=== PATIENT | female | born 1950 | race Caucasian/White ===

== ENCOUNTER 2017-10-22 04:53 | Inpatient (IN) | payer OTHER ==
[2017-10-01 11:46] VITALS: BMI 33.0
--- NOTE | 2017-10-01 12:18 | PAT Medication Instructions ---
Service Date Oct 01, 2017. Current Home Medication List Celecoxib (CeleBREX), 200 MG PO QAM Cetirizine (Zyrtec), 10 MG PO HS Diltiazem Hcl Ext Rel (Tiazac), 120 MG PO BID Fluticasone Propionate (Nasal) (Flonase Allergy Relief), 2 SPRAYS INTNAS PRN Hydrochlorothiazide (Hydrochlorothiazide), 1 TAB PO QAM Levothyroxine Sodium (Levothyroxine Sodium), 1 TAB PO QAM Potassium Ext Rel (Klor-Con), 20 MEQ PO QPM Probiotic Product (Align), 1 TAB PO QAM PRN for PRN Medication Instructions For Your Scheduled Surgery - Check with surgeon for instructions: Celecoxib (CeleBREX), 200 MG PO QAM - Hold the following medications the morning of surgery: Hydrochlorothiazide (Hydrochlorothiazide), 1 TAB PO QAM Probiotic Product (Align), 1 TAB PO QAM PRN for PRN - Take the following medications the morning of surgery with a sip of water: Levothyroxine Sodium (Levothyroxine Sodium), 1 TAB PO QAM Fluticasone Propionate (Nasal) (Flonase Allergy Relief), 2 SPRAYS INTNAS PRN ( if needed) Diltiazem Hcl Ext Rel (Tiazac), 120 MG PO BID - Take the following medications as scheduled the night before surgery: Probiotic Product (Align), 1 TAB PO QAM PRN for PRN Potassium Ext Rel (Klor-Con), 20 MEQ PO QPM Fluticasone Propionate (Nasal) (Flonase Allergy Relief), 2 SPRAYS INTNAS PRN ( if needed) Cetirizine (Zyrtec), 10 MG PO HS If you have any questions please call us at [phone] or [phone] or [phone]
--- NOTE | 2017-10-01 12:49 | DIAGNOSTIC IMAGING REPORT ---
CHEST 2 VIEWS ROUTINE CLINICAL HISTORY: PAT preoperative evaluation COMPARISON STUDY: 12/30/2013 FINDINGS: Mild emphysematous change. Diaphragms smooth. Minimal chronic atelectasis left base. Lungs otherwise appear clear. IMPRESSION: Mild emphysematous change. No acute process. The above report was generated using voice recognition software. It may contain grammatical, syntax or spelling errors. Electronically signed by: Caleb Henao M.D. 10/01/2017 12:47 PM Dictated Date/Time: 10/01/2017 12:47 PM
[2017-10-01 13:02] LABS: BASO % 0.2 %; BASO ABS # 0.02 K/uL (0-0.2); EOS % 2.2 %; EOS ABS # 0.18 K/uL (0-0.5); HEMATOCRIT 43.1 % (37-47); HEMOGLOBIN 14.9 g/dL (12.0-16.0); IG# 0.01 K/uL (0.00-0.02); LYMPH % 37.3 %; LYMPH ABS # 3.01 K/uL (1.2-3.4); MEAN CELL VOLUME 88.9 fL (80-100); MEAN CORPUSCULAR HEMOGLOBIN 30.7 pg (25-34); MEAN CORPUSCULAR HGB CONC 34.6 g/dl (32-36); MEAN PLATELET VOLUME 10.1 fL (7.4-10.4); MONO % 9.2 %; MONO ABS # 0.74 K/uL (0.11-0.59); PLATELET COUNT 312 K/uL (130-400); RED CELL DISTRIBUTION WIDTH CV 13.2 % (11.5-14.5); RED CELL DISTRIBUTION WIDTH SD 42.7 fL (36.4-46.3); WHITE BLOOD COUNT 8.06 K/uL (4.8-10.8)
[2017-10-01 13:20] LABS: INR 0.9 (0.9-1.1); PTT PATIENT 24.4 SECONDS (21.0-31.0)
[2017-10-01 14:35] LABS: ALBUMIN 3.8 gm/dl (3.4-5.0); CALCIUM 9.1 mg/dl (8.5-10.1); CREATININE 0.8 mg/dl (0.60-1.20); POTASSIUM 4.1 mmol/L (3.5-5.1); TOTAL PROTEIN 7.5 gm/dl (6.4-8.2)
--- NOTE | 2017-10-21 10:48 | History and Physical ---
History & Physical Date Oct 21, 2017. Chief Complaint right knee pain History of Present Illness The patient is a 67 year old female with complaints of right knee pain for years. Pt has failed all forms of conservative measures and ready for TkA. Additional History Hepatic Disease: No Endocrine Disorder: No Kidney Disease: No Hypertension: Yes Heart Disease: No Bleeding Tendencies: No Infectious Diseases: No Allergies Coded Allergies: No Known Allergies (Unverified , 10/01/17) PER CRIST[facility] CORRALES H&P 12/2013 Home Medications Scheduled Celecoxib (CeleBREX), 200 MG PO QAM Cetirizine (Zyrtec), 10 MG PO HS Diltiazem Hcl Ext Rel (Tiazac), 120 MG PO BID Fluticasone Propionate (Nasal) (Flonase Allergy Relief), 2 SPRAYS INTNAS PRN Hydrochlorothiazide (Hydrochlorothiazide), 1 TAB PO QAM Levothyroxine Sodium (Levothyroxine Sodium), 1 TAB PO QAM Potassium Ext Rel (Klor-Con), 20 MEQ PO QPM Scheduled PRN Probiotic Product (Align), 1 TAB PO QAM PRN for PRN Physical Examination Skin: warm/dry, no rash Eyes: normal inspection, EOMI, sclerae normal ENT: normal ENT inspection, pharynx normal Head: normocephalic, atraumatic Neck: supple, no adenopathy, trachea midline Respiratory/Chest: lungs clear, normal breath sounds, no respiratory distress Cardiovascular: regular rate, rhythm, no edema, no murmur Abdomen / GI: normal bowel sounds, non tender Back: normal inspection Extremities: normal inspection, normal range of motion, + pertinent finding ( PAIN WITH ROM RIGH KNEE AND JOINT LINE TENDERNESS. ) Neurologic/Psych: no motor/sensory deficits, alert, normal reflexes, oriented x 3 Diagnosis DJD RIGHT KNEE Plan of Treatment PT TO BE ADMITTED AND UNDERGO RIGHT TKA.
[~2017-10-22] VITALS: Ht 160 cm; Wt 84.5 kg
[2017-10-22] VITALS (10 sets, daily range): BP systolic 96–145; BP diastolic 64–91; PULSE 69–98; TEMP 36.3–36.9; O2SAT 92–98; Ht 160 cm; Wt 84.5 kg
[~2017-10-22 04:53] MED LIST: CETI10TA84 PO; CLB/200 PO; DILT120C68 PO; FLUT0.15 INTNAS; HYDR25TA5 PO; LEVO50TA6 PO; MISC4CAP PO; POTA20TA16 PO
[2017-10-22] MEDS ORDERED: CeleBREX 200 MG CAP PO SCH (06:00)
[2017-10-22] MEDS ORDERED: DEXAMETHASONE 4 MG TAB PO SCH (06:00)
[2017-10-22] MEDS ORDERED: LACTATED RINGER'S 1000ML IV SCH (06:00)
[2017-10-22] MEDS ORDERED: LACTATED RINGER'S 1000ML 1,000 ML IV SCH (06:00)
[2017-10-22] MEDS ORDERED: ROPIVACAINE 5MG/ML 30 ML 150 MG, BUPIVACAINE 0.5% MPF INJ 30 ML, EpINEphrine HCL INJ 0.... INFIL SCH ×8 (06:00)
[2017-10-22] MEDS ORDERED: ACETAMINOPHEN 500 MG TAB PO SCH (06:00)
[2017-10-22] MEDS ORDERED: LACTATED RINGER'S 1000ML 500 ML IV SCH (06:00)
[2017-10-22] MEDS ORDERED: CEFAZOLIN 2000MG IV PUSH 15 ML IV SCH (06:00)
[2017-10-22] MEDS ORDERED: FAMOTIDINE 20 MG TAB PO SCH (06:00)
[2017-10-22] MEDS ORDERED: METOCLOPRAMIDE HCL 10 MG TAB PO SCH (06:00)
[2017-10-22] MEDS: TRANEXAMIC ACID INJ 1,000 MG x 2 Bags IV SCH ×4 (06:30→06:45)
[2017-10-22] MEDS ORDERED: ORTHO JOINT ANESTHETIC ONE (06:36)
[2017-10-22] MEDS ORDERED: BACITRACIN 50000 UNIT VIAL ONE (06:36)
[2017-10-22] MEDS ORDERED: BUPIVACAINE 0.5 % 5 MG/1 ML PF 10ML VIAL ONE (06:36)
[2017-10-22] MEDS ORDERED: POVIDONE-IODINE OP SOLN 30 ML BTL ONE (06:36)
[2017-10-22] MEDS ORDERED: BUPIVACAINE 0.25% 30 ML VIAL ONE (06:36)
[2017-10-22] MEDS ORDERED: MIDAZOLAM HCL 1 MG/ML 2ML VIAL ONE (06:37)
--- NOTE | 2017-10-22 06:44 | History & Physical Bridge Note ---
H&P Re-Evaluation Bridge Note: I have examined the patient, reviewed the History & Physical and in the interval since the performance of the History & Physical I have noted the following changes of clinical significance: No changes noted
[2017-10-22] MEDS ORDERED: PROPOFOL IV EMULSION 10 MG/ML 20 ML VIAL IV ONE (07:56)
[2017-10-22] MEDS ORDERED: LIDOCAINE HCL 2% 2 ML VIAL (20MG/ML) ONE (07:56)
[2017-10-22] MEDS ORDERED: PHENYLEPHRINE 100MCG/ML 5ML SYR ONE (07:56)
--- NOTE | 2017-10-22 08:00 | [facility] Post Operative Brief Note ---
Immediate Operative Summary Operative Date Oct 22, 2017. Pre-Operative Diagnosis Degenerative joint disease right knee. Post-Operative Diagnosis same as preoperative diagnosis Procedure(s) Performed Right total knee arthroplasty. Surgeon Dr. Nielson Terrazzo Layer Surgeon(s) Leonor Fung PA-C Estimated Blood Loss 20cc Findings Consistent with Post-Op Diagnosis Specimens A. Right knee bone and tissue. Drains None Anesthesia Type MAC Spinal Regional Complication(s) none Disposition Accompanied Pt To Recover: no Disposition: Recovery Room / PACU
--- NOTE | 2017-10-22 08:09 | [facility] Operative Report ---
Operative Report Operative Date Oct 22, 2017. Pre-Operative Diagnosis Degenerative joint disease right knee. Post-Operative Diagnosis same as preoperative diagnosis Procedure(s) Performed Right total knee arthroplasty. Surgeon Dr. Nielson Supervisor [employer] Workers Surgeon(s) Leonor Fung PA-C Estimated Blood Loss 20ML Findings as above Specimens A. Right knee bone and tissue. Drains None Anesthesia Type MAC Spinal Regional Complication(s) none Disposition no Recovery Room / PACU Description of Procedure IMPLANTS USED: Emiliano [employer] journeyed to knee size 3 cemented femoral component, a size 2 tibial component, a size 12 PS insert with size 35 all polythene patella INDICATIONS: Mrs. Cummings is a pleasant female) who has unfortunately failed all forms of conservative measures. Therefore, they have decided to undergo elective surgical intervention. All risks and benefits of the surgery were discussed with the patient and the family in entirety. PROCEDURE: The patient was brought to the operating room and properly identified by myself, anesthesia, and staff. Patient was given a spinal anesthesia and placed on the operating table in the supine position. Tourniquets were applied to the right upper thigh. The leg was then prepped and draped in usual sterile fashion. We made a standard midline approach over the patella and dissected down through the subcutaneous tissue to identify the capsule and performed a medial capsulotomy with the patella everted and the knee flexed.The patient matched implant was then put onto the femur. The femur measured to be a size 3. This was then put into place. We made the appropriate cuts and then placed a retractor behind the proximal tibia to retract anteriorly. We then placed the patient matched knee implant on the tibia. It measured to be a size 3. A size 3 guide was then put in place. We used the tibial punch then put the trial components into place. We had very good range of motion, excellent stability, and excellent patella tracking. We removed the trial components and irrigated the wound. We impacted the components in place using antibiotic cement. All excess cement was removed. We then irrigated the wound once more. We closed the capsule with 0 PDS suture , deep dermis and 2-0 Vicryl, and finally the skin with sisi. A sterile dressing was applied. The patient was taken to the recovery room in stable condition. Due to the complex nature of the procedure, the entire surgery was performed with the operational assistance of [the (PA-C)]. The press assistant and feeder was under direct supervision, was involved in the actual performance of all aspects of the surgical procedure including hemostasis, tissue retraction and incision, instrument management, patient positioning, and wound closure. I attest to the content of the Intraoperative Record and any orders documented therein. Any exceptions are noted below.
[2017-10-22] MEDS ORDERED: ALUMINUM/MAGNESIUM/SIMETH (MAALOX MAX) 30 ML UDC PO PRN (08:15)
[2017-10-22] MEDS ORDERED: MAGNESIUM HYDROXIDE SUSP 30 ML UDC PO PRN (08:15)
[2017-10-22] MEDS ORDERED: ONDANSETRON INJ 2 MG/ML 2 ML VIAL IV PRN (08:15)
[2017-10-22] MEDS ORDERED: ZOLPIDEM TARTRATE 5 MG TAB PO PRN (08:15)
--- NOTE | 2017-10-22 09:05 | Anesthesiology Progress Note ---
Anesthesia Post Op Note Date & Time Oct 22, 2017 at 09:05 Vital Signs Pain Intensity: 0 Vital Signs Past 12 Hours Date Time Temp Pulse Resp B/P (MAP) Pulse Ox O2 Delivery O2 Flow Rate FiO2 10/22/17 09:00 36.2 72 14 106/62 98 Nasal Cannula 3 10/22/17 08:50 70 14 109/61 98 Nasal Cannula 3 10/22/17 08:40 73 14 96/59 99 Oxymask 3 10/22/17 08:33 36.2 76 16 99/60 97 Oxymask 5 10/22/17 05:32 36.8 85 18 145/91 96 Room Air Notes Neuraxial Anesthesia: was administered, sensory block is resolving
[2017-10-22] MEDS ORDERED: ATROPINE SULFATE 0.1 MG/ML 5ML SYR IV PRN (09:15)
[2017-10-22] MEDS ORDERED: EpHEDrine SULFATE INJ 50 MG/ML AMP IV PRN (09:15)
[2017-10-22] MEDS: SODIUM CHLORIDE 0.9% 1000ML 1,000 ML IV SCH ×2 (11:44→21:08)
[2017-10-22] MEDS: HYDROCHLOROTHIAZIDE 25 MG TAB PO SCH (11:45)
[2017-10-22] MEDS: DOCUSATE SODIUM 100 MG CAP PO SCH ×2 (11:45→21:07)
[2017-10-22] MEDS ORDERED: TRANEXAMIC ACID INJ 1,000 MG in SODIUM CHLORIDE 0.9% 100ML 100 ML IV SCH (14:30)
[2017-10-22] MEDS: ACETAMINOPHEN 500 MG TAB PO SCH ×2 (14:59→22:24)
[2017-10-22] MEDS: CEFAZOLIN IV 2,000 MG in SYRINGE 0 ML IV SCH ×2 (15:00→22:29)
[2017-10-22] MEDS ORDERED: CETIRIZINE HCL 10 MG TAB PO SCH (21:00)
[2017-10-22] MEDS ORDERED: POTASSIUM CHLORIDE 20 MEQ TABCR PO SCH (21:00)
[2017-10-22] MEDS: ASPIRIN 81 MG ECTAB PO SCH (21:07)
[2017-10-22] MEDS: DILTIAZEM HCL 120 MG EXT REL CAP PO SCH (21:08)
[2017-10-22] MEDS: OXYCODONE HCL IR 5 MG TAB (IMMEDIATE RELEASE) PO PRN (22:25)
[2017-10-23 03:22] VITALS: BP 102/65; PULSE 89; TEMP 36.4; O2SAT 95
[2017-10-23] MEDS: SODIUM CHLORIDE 0.9% 1000ML 1,000 ML IV SCH (05:43)
[2017-10-23] MEDS: ACETAMINOPHEN 500 MG TAB PO SCH (05:45)
[2017-10-23] MEDS ORDERED: LEVOTHYROXINE 50 MCG TAB PO SCH (06:00)
[2017-10-23 07:06] LABS: HEMATOCRIT 34.7 % (37-47); HEMOGLOBIN 11.9 g/dL (12.0-16.0); MEAN CELL VOLUME 87.8 fL (80-100); MEAN CORPUSCULAR HEMOGLOBIN 30.1 pg (25-34); MEAN CORPUSCULAR HGB CONC 34.3 g/dl (32-36); MEAN PLATELET VOLUME 9.7 fL (7.4-10.4); PLATELET COUNT 240 K/uL (130-400); RED CELL DISTRIBUTION WIDTH CV 13.3 % (11.5-14.5); RED CELL DISTRIBUTION WIDTH SD 43.1 fL (36.4-46.3); WHITE BLOOD COUNT 12.55 K/uL (4.8-10.8)
[2017-10-23] MEDS ORDERED: DEXAMETHASONE INJ 10 MG in SYRINGE 0 ML IV ONE (07:30)
[2017-10-23 07:44] VITALS: BP 127/85; PULSE 83; TEMP 36.7; O2SAT 95
[2017-10-23] MEDS: HYDROCHLOROTHIAZIDE 25 MG TAB PO SCH (08:58)
[2017-10-23] MEDS: DOCUSATE SODIUM 100 MG CAP PO SCH (08:59)
[2017-10-23] MEDS: DILTIAZEM HCL 120 MG EXT REL CAP PO SCH (09:00)
[2017-10-23] MEDS ORDERED: CeleBREX 200 MG CAP PO SCH (09:00)
[2017-10-23] MEDS: ASPIRIN 81 MG ECTAB PO SCH (09:00)
[2017-10-23] MEDS: OXYCODONE HCL IR 5 MG TAB (IMMEDIATE RELEASE) PO PRN (09:01)
[2017-10-23] MEDS ORDERED: FLUTICASONE PROPIONATE NA SPR 16 GM BTL PRN (09:45)
--- NOTE | 2017-10-23 09:54 | Orthopedic Progress Note ---
Orthopedic Progress Note Date of Service Oct 23, 2017. Subjective Post OP Day: 1 Reports: feeling well, Denies: complaints Objective calves soft nontender, N/V intact, dressing C/D/I, A&O x3, toes mobile Date Time Temp Pulse Resp B/P (MAP) Pulse Ox O2 Delivery O2 Flow Rate FiO2 10/23/17 07:44 36.7 83 18 127/85 (99) 95 Room Air 10/23/17 07:10 Room Air 10/23/17 03:22 36.4 89 16 102/65 (77) 95 Room Air 10/22/17 23:05 Room Air 10/22/17 22:51 36.3 93 17 109/68 (82) 94 Room Air 10/22/17 21:04 98 124/82 (96) 10/22/17 15:00 Room Air 10/22/17 12:13 36.5 78 18 110/72 (85) 98 Room Air 10/22/17 11:09 36.3 79 18 96/64 (75) 94 Room Air 10/22/17 10:26 36.9 83 20 111/73 (86) 97 Room Air 10/22/17 10:13 77 18 105/70 (82) 96 Room Air 10/22/17 09:59 36.4 69 20 120/80 (93) 92 Room Air Laboratory Results 24 Hours: Test 10/23/17 06:40 Hematocrit 34.7 % Hemoglobin 11.9 g/dL Assessment & Plan Assessment: POD 1 s/p Right TKA Plan: PT/OT Planning for HH PT Possible dc to home today Inhouse Planning Pain Management: Celebrex, PO Tylenol, Oxy IR DVT Prophylaxis: TEDs, SCDs, ASA Discharge Planning Discharge Planning: home with home health Pain Management: Celebrex, PO Tylenol, Oxy IR DVT Prophylaxis: TEDs, SCDs, ASA Therapy: Physical Therapy
[2017-10-23] MEDS ORDERED: ASPEC81 PO (09:57)
[2017-10-23] MEDS ORDERED: ACET-24 PO (09:57)
[2017-10-23] MEDS ORDERED: RXC5 PO (09:57)
--- NOTE | 2017-10-23 10:03 | Discharge Instructions ---
Discharge Instructions Date of Service Oct 23, 2017. Admission Reason for Admission: Right Knee Osteoarthritis Discharge Discharge Diagnosis / Problem: Right Knee Djd Discharge Goals Goal(s): Decrease discomfort, Improve function, Increase independence Activity Recommendations Activity Limitations: per Instructions/Follow-up section Weightbearing Status: Right weightbearing (as tolerated) . Instructions / Follow-Up Instructions / Follow-Up Dr. Nielson Total Knee Replacement Discharge Instructions DERMABOND Prineo- This is a mesh tape dressing that is covered with glue. It should remain in place until the incision is properly healed, usually 10-14 days. This dressing is designed to naturally slough off. You may trim the excess mesh tape as it peels off. Incision may be briefly wet in a shower. Dry immediately by blotting with a clean, dry towel. Do not bath or swim until instructed by your doctor. Do not scratch, rub, or pick at the dressing. Do not apply any topical ointments or lotions until dressing is completely removed and/or instructed by your doctor. There may be a small piece of suture material at one end of your incision. Do not pull or trim this. If it is bothersome or catching on clothing, you may cover it with a band-aid. ICE and ELEVATE constantly. If a drain is in place, it is removed when less than 10cc for 2 consecutive 8 hr shifts. IF IMER / Prevena device in place, please see the instruction sheet. Also, every Home Nursing Agency, Home PT, and Rehab is aware how this works. If your home nurse or therapist says they don't know want this is, have them call you [facility] or the digital community manager right away, it is meant to protect and help your incision heal faster. Please read the Do's and Don'ts sheet. This paper and the Do's and Don'ts are the most important. The rest of your paperwork from hospital is redundant and or confusing. This is the info I want you to take to heart. I typically give you 5 prescriptions. Some are Eprescribed to your pharmacy already. They are: 1. Oxycodone or some form of a narcotic pain pill. Please take. Most important. 2. Aspirin - this is for blood clot prevention, please take. You may have them prescribe something stronger than aspirin, if so, you won't have a script for aspirin daily. 3. Tylenol 4. Zofran-this is for nausea, take if you need. 5. Celebrex-helps with inflammation, if not covered by insurance, then use ibuprofen 600 mg, 2 to 3 times a day. If any problems or concerns, please call [facility] (Or Carmen Morales if she is your coordinator) FIRST. DO not go to the ER unless directed by your [facility] Physician or it's an absolute emergency. Our phone numbers are located all throughout the your [facility] packet. Follow up with DR Nielson in 2 weeks. Call for an appointment if one has not been made for you. [phone] Current Hospital Diet Patient's current hospital diet: Regular Diet Discharge Diet Recommended Diet: Regular Diet Procedures Procedures Performed: Right total knee arthroplasty. Pending Studies Studies pending at discharge: no Medical Emergencies . Who to Call and When: Medical Emergencies: If at any time you feel your situation is an emergency, please call 911 immediately. . Non-Emergent Contact Non-Emergency issues call your: Surgeon Call Non-Emergent contact if: temperature is above 101.5, your pain is not controlled, your pain is worsening, wound has increased drainage, wound has increased redness . "Provider Documentation" section prepared by Kevin Willson. . VTE Core Measure Inpt VTE Proph given/why not?: Other Anticoagulation, T.E.D. Stockings, SCD's [place] Drug Monitoring Program Search Results: patient reviewed within database, no issues identified
[2017-10-23 10:15] VITALS: BP 127/85; PULSE 83; TEMP 36.7; O2SAT 95
--- NOTE | 2017-10-23 11:03 | Anesthesiology Progress Note ---
Anesthesia Post Op Note Date & Time Oct 23, 2017 at 11:02 Vital Signs Pain Intensity: 2.0 Vital Signs Past 12 Hours Date Time Temp Pulse Resp B/P (MAP) Pulse Ox O2 Delivery O2 Flow Rate FiO2 10/23/17 10:15 36.7 83 18 95 Room Air 10/23/17 07:44 36.7 83 18 127/85 (99) 95 Room Air 10/23/17 07:10 Room Air 10/23/17 03:22 36.4 89 16 102/65 (77) 95 Room Air 10/22/17 23:05 Room Air Notes Mental Status: alert / awake / arousable, participated in evaluation Pt Amnestic to Procedure: Yes Nausea / Vomiting: adequately controlled Pain: adequately controlled Airway Patency, RR, SpO2: stable & adequate BP & HR: stable & adequate Hydration State: stable & adequate Anesthetic Complications: no major complications apparent Awake alert, satisified with anesthesia care. VSS. No complaints
== END 2017-10-23 13:07 | disposition home health service (06) | DRG 470 ==
LOC: C.ACU 04:53 → C.3E 06:40 → ENRESERV 08:49
PROVIDERS: ADMIT Orthopaedic Surgery; ATTEND Orthopaedic Surgery
PROC: 0SRC0J9 Replacement of Right Knee Joint with Synthetic Substitute, Cemented, Open Approach (ICD-10-PCS; principal; 2017-10-22 07:00)
DX: M17.11 Unilateral primary osteoarthritis, right knee (principal); I10 Essential (primary) hypertension; Z79.899 Other long term (current) drug therapy